=== PATIENT | female | born 1965 | race Caucasian/White ===

== ENCOUNTER 2020-04-22 13:57 | Inpatient (IN) | payer MEDICARE ==
[~2020-04-22] VITALS: Ht 162.6 cm; Wt 65.3 kg
--- NOTE | 2020-04-22 17:00 | NUR ---
DIRECTOR OF SALES SUPPORT NOTE- PT ARRIVED TO THIS UNIT VIA GURNEY ON 5150 DTS. PT WANTED TO SIT IN TRAFFIC AND END HER LIFE. ON FACE TO FACE ASSESSMENT PT IS SELECTIVELY APHASIC, POOR EYE CONTACT, BLUNTED AFFECT AND MINIMAL INTERACTION. PT IS 5'4" TALL AND 144 POUNDS. VS- BP- 114/75, HR- 81, RR-19, T- 98.7, SATURATION 96% RA, PT REFUSED PMHX QUESTIONS, SKIN CHECK, ACCU CHECK AND VIRTUALLY ALL QUERY. PTS BELONGINGS ITEMIZED BY MD LEONA ORDERS GIVEN AND COMPLIED WITH, FOOD ORDERED AND PT ATE 100%. PT WITHDRAWN ISOLATIVE DOES STATE SHE HAS PASSIVE +SI, HOMELESSNESS AND STRESS ARE FOCUS. PT APPEARS TO BE INTERNALLY PREOCCUPIED AND RESPONDING. REALITY ORIENTATION GIVEN, DISCUSSED SAFETY AND UNIT . PT SAID NOTHING. STARED AT FLOOR.
[2020-04-22] MEDS ORDERED: LAMO25TA5 PO (17:20)
[2020-04-22] MEDS ORDERED: OLAN5TAB3 PO (17:20)
[2020-04-22] MEDS ORDERED: RISP0.2515 PO (17:20)
[2020-04-22] MEDS ORDERED: TEMAZEPAM 7.5 MG CAPSULE PO PRN (17:30)
[2020-04-22] MEDS ORDERED: MAGNESIUM HYDROXIDE 30 ML UDC PO PRN (17:30)
[2020-04-22] MEDS ORDERED: clonazePAM 0.5 MG TABLET PO PRN (17:30)
[2020-04-22] MEDS ORDERED: MAG HYDROX/AL HYDROX/SIMETH 30 ML UDC PO PRN (17:30)
[2020-04-22] MEDS ORDERED: BLOOD SUGAR DIAGNOSTIC 1 EACH STRIP IN ONE (17:30)
[2020-04-22 18:09] VITALS: BP 114/75
[2020-04-23] MEDS: ACETAMINOPHEN 325 MG TABLET PO PRN ×2 (01:35→11:55)
[2020-04-23 08:00] VITALS: BP 110/73
--- NOTE | 2020-04-23 09:00 | NUR ---
RN NOTE- PT ALERT SHOWERED CLEAN CALM W GOOD PO INTAKE. PT W FLAT AFFECT DENIES SI HI AH VH AT PRESENT, POOR EYE CONTACT DISORGANIZED THOUGHTS RESPONDING AND INTERNALLY PREOCCUPIED.
--- NOTE | 2020-04-23 11:55 | NUR ---
RN NOTE- C/O HEADACHE. TYLENOL 650 MG GIVEN
--- NOTE | 2020-04-23 14:29 | NUR ---
RN NOTE- DYSPEPSIA COMPLAINT BY PT. MAALOX 30 ML GIVEN
[2020-04-23 16:00] VITALS: BP 129/91
[2020-04-23] MEDS: LamoTRIgine 25 MG TABLET PO SCH ×2 (16:11→20:34)
[2020-04-23] MEDS: OLANZAPINE 5 MG TABLET PO SCH (17:14)
[2020-04-23] MEDS: risperiDONE 1 MG TABLET PO SCH (17:14)
[2020-04-24 08:00] VITALS: BP 108/68
[2020-04-24] MEDS: OLANZAPINE 5 MG TABLET PO SCH ×2 (09:01→16:24)
[2020-04-24] MEDS: risperiDONE 1 MG TABLET PO SCH ×2 (09:02→16:24)
[2020-04-24] MEDS: ACETAMINOPHEN 325 MG TABLET PO PRN (10:23)
[2020-04-24] MEDS: LamoTRIgine 25 MG TABLET PO SCH ×2 (10:45→20:50)
--- NOTE | 2020-04-24 10:49 | NUR ---
SNI-MS:TYLENOL IS GIVEN DUE TO COMPLAIN OF HEADACHE 06/19
[2020-04-24 16:00] VITALS: BP 116/71
--- NOTE | 2020-04-24 18:11 | NUR ---
RN-CO: PT REFUSED LAB WORKS AGAIN, ENC 3X BUT STILL REFUSED.
[2020-04-25] MEDS: risperiDONE 1 MG TABLET PO SCH ×2 (09:32→16:19)
[2020-04-25] MEDS: OLANZAPINE 5 MG TABLET PO SCH ×2 (09:33→16:20)
[2020-04-25] MEDS: ACETAMINOPHEN 325 MG TABLET PO PRN ×2 (09:33→16:20)
[2020-04-25] MEDS: LamoTRIgine 25 MG TABLET PO SCH ×2 (09:34→21:58)
--- NOTE | 2020-04-25 09:34 | NUR ---
RN-CO: PT REQUESTED FOR TYLENOL FOR MILD PAIN.
--- NOTE | 2020-04-25 14:15 | NUR ---
Initial Discharge Plan: Pt is a homeless patient. Per pt, she is unaware of where to be discharged to. SW will work with the pt and the pts MD regarding appropriate discharge planning. SW will form a safe and proper plan.
[2020-04-25 16:00] VITALS: BP 108/69
[2020-04-25 16:29] LABS: BILIRUBIN,URINE NEGATIVE (NEGATIVE); COLOR,URINE YELLOW (YELLOW); LEUKOCYTE ESTERASE ,URINE NEGATIVE (NEGATIVE); NITRITE, URINE NEGATIVE (NEGATIVE); PROTEIN,URINE NEGATIVE (NEGATIVE); UGLUCOSE NEGATIVE (NEGATIVE); UROBILINOGEN,URINE 0.2 EU/dL (0.2)
--- NOTE | 2020-04-25 17:01 | NUR ---
STUDENT NURSE MENTAL HEALTH CONSULTANT MS: TYLENOL GIVEN 650MG FOR PAIN 06/19
[2020-04-25 17:28] LABS: BACTERIA,URINE None seen /HPF (None Seen); SQUAMOUS EPITHELIAL CELL,UR 0-2 /HPF (None Seen); WBC,URINE 0-2 /HPF (0-3)
--- NOTE | 2020-04-25 19:30 | NUR ---
GPS RN NOTE, RECEIVED PATIENT AWAKE AND IN BED, NO S/S OR COMPLAINTS OF PAIN AT THIS TIME. PATIENT IS DISPLAYING NO S/S OF APPARENT DISTRESS AT THIS TIME. PATIENT BREATHING IS UNLABORED WITH EQUAL RISE AND FALL OF THE CHEST. PATIENT IS ALERT AND ORIENTED X 2-3 ON ROOM AIR WITH A SPO2 94%. PATIENT IS COMPLIANT WITH MEDICATIONS, ANXIOUS AT TIMES, ISOLATIVE, NEEDS REDIRECTION, AND COOPERATIVE. PATIENT DENIES SUICIDAL AND HOMICIDAL IDEATIONS AT THIS TIME. PATIENT ASSISTED WITH TURNING AND REPOSITIONING Q2HR AND PRN FOR COMFORT AND CIRCULATION. PATIENT HAS NO NEEDS AT THIS TIME. PATIENT EDUCATED ON THE USE OF THE CALL POP. PATIENT BED SIDE RAILS UP X 2 FOR SAFETY. PATIENT BED IS LOCKED, LOW, WITH BED ALARM ON. WILL CONTINUE TO MONITOR THIS PATIENT Q15 MINUTES WITH THE HELP OF STAFF TO MAINTAIN SAFETY.
[2020-04-25 19:51] VITALS: BP 110/72
--- NOTE | 2020-04-25 21:58 | NUR ---
GPS RN NOTE, PATIENT REFUSED LAMICTAL 75MG PO Q12HR SCHEDULED. OFFERED THREE TIMES AND STILL PATIENT REFUSED STATING, " NO YOUR TO LATE I'M NOT TAKING ANYTHING TONIGHT ". EDUCATED PATIENT ON THE RISKS AND BENEFITS OF TAKING AND REFUSING LAMICTAL. WILL CONTINUE TO MONITOR THIS PATIENT WITH THE HELP OF STAFF.
[2020-04-26 07:28] LABS: BASOPHILS % (AUTO) 0.4 % (0.0-2.0); EOSINOPHILS % (AUTO) 3.4 % (0.0-6.0); HEMATOCRIT 34 % (33-45); HEMOGLOBIN 11.3 g/dL (11.5-14.8); LYMPHOCYTES # (AUTO) 2.3 /CMM (0.8-4.8); MEAN CORPUSCULAR HGB CONC 33 g/dl (31.0-36.0); MEAN CORPUSCULAR VOLUME 91 fL (82-100); MONOCYTES # (AUTO) 0.5 /CMM (0.1-1.30); MONOCYTES % (AUTO) 7.2 % (2.0-12.0); NEUTROPHILS # (AUTO) 3.9 /CMM (1.8-8.9); PLATELET COUNT (AUTO) 456 /CMM (150-450); RED BLOOD CELL COUNT(AUTO) 3.77 MIL/uL (4.0-5.2); WHITE BLOOD COUNT (AUTO) 6.9 K/uL (4.3-11.0)
[2020-04-26 07:54] LABS: CALCIUM, SERUM 9.3 mg/dL (8.5-10.1); CREATININE 0.8 mg/dL (0.6-1.3); PHOSPHORUS 4.1 mg/dL (2.5-4.9); POTASSIUM 4.3 mmol/L (3.5-5.1)
[2020-04-26 08:00] VITALS: BP 114/70
[2020-04-26] MEDS: OLANZAPINE 5 MG TABLET PO SCH ×2 (08:13→16:31)
[2020-04-26] MEDS: risperiDONE 1 MG TABLET PO SCH ×2 (08:13→16:31)
[2020-04-26 08:49] LABS: THYROID STIMULATING HORMONE 1.95 uIU/mL (0.358-3.74)
[2020-04-26] MEDS: LamoTRIgine 25 MG TABLET PO SCH ×2 (08:49→21:00)
[2020-04-26] MEDS: ACETAMINOPHEN 325 MG TABLET PO PRN (08:53)
--- NOTE | 2020-04-26 08:53 | NUR ---
RN NOTE-PT W C/O HEADACHE. TYLENOL 650 MG GIVEN
--- NOTE | 2020-04-26 09:00 | NUR ---
RN NOTE- PT ISOLATIVE WITHDRAWN CONFUSED NEEDS ATTENDED, PO INTAKE GOOD MED COMPLIANT DENIES ALL FOCUS ON DC
--- NOTE | 2020-04-26 09:57 | NUR ---
Probable Cause Hearing: Pts [id number] hold was upheld for danger to herself and grave disability.
[2020-04-26 16:00] VITALS: BP 112/74
--- NOTE | 2020-04-26 19:30 | NUR ---
GPS RN NOTE, RECEIVED PATIENT AWAKE AND IN BED, NO S/S OR COMPLAINTS OF PAIN AT THIS TIME. PATIENT IS DISPLAYING NO S/S OF APPARENT DISTRESS AT THIS TIME. PATIENT BREATHING IS UNLABORED WITH EQUAL RISE AND FALL OF THE CHEST. PATIENT IS ALERT AND ORIENTED X 2-3 ON ROOM AIR WITH A SPO2 96%. PATIENT IS COMPLIANT WITH MEDICATIONS, ANXIOUS AT TIMES, ISOLATIVE, NEEDS REDIRECTION, AND COOPERATIVE. PATIENT DENIES SUICIDAL AND HOMICIDAL IDEATIONS AT THIS TIME. PATIENT ASSISTED WITH TURNING AND REPOSITIONING Q2HR AND PRN FOR COMFORT AND CIRCULATION. PATIENT HAS NO NEEDS AT THIS TIME. PATIENT EDUCATED ON THE USE OF THE CALL POP. PATIENT BED SIDE RAILS UP X 2 FOR SAFETY. PATIENT BED IS LOCKED, LOW, WITH BED ALARM ON. WILL CONTINUE TO MONITOR THIS PATIENT Q15 MINUTES WITH THE HELP OF STAFF TO MAINTAIN SAFETY.
[2020-04-26 20:00] VITALS: BP 130/67
--- NOTE | 2020-04-26 21:12 | NUR ---
GPS RN NOTE, PATIENT REFUSED LAMICTAL 75MG PO Q12HR SCHEDULED. OFFERED THREE TIMES AND STILL PATIENT REFUSED STATING, " SKIP IT LEAVE ME ALONE THANK YOU ". EDUCATED PATIENT ON THE RISKS AND BENEFITS OF TAKING AND REFUSING LAMICTAL. WILL CONTINUE TO MONITOR THIS PATIENT WITH THE HELP OF STAFF.
[2020-04-27 08:00] VITALS: BP 109/62
[2020-04-27] MEDS: risperiDONE 1 MG TABLET PO SCH ×2 (08:28→16:23)
[2020-04-27] MEDS: OLANZAPINE 5 MG TABLET PO SCH ×2 (08:28→16:23)
[2020-04-27] MEDS: LamoTRIgine 25 MG TABLET PO SCH ×2 (09:23→21:00)
--- NOTE | 2020-04-27 15:23 | NUR ---
LUIS FELIPECO: MOM GIVEN FOR C/O CONSTIPATION.
[2020-04-27 16:00] VITALS: BP 114/68
--- NOTE | 2020-04-27 19:30 | NUR ---
GPS RN NOTE, RECEIVED PATIENT AWAKE AND IN BED, NO S/S OR COMPLAINTS OF PAIN AT THIS TIME. PATIENT IS DISPLAYING NO S/S OF APPARENT DISTRESS AT THIS TIME. PATIENT BREATHING IS UNLABORED WITH EQUAL RISE AND FALL OF THE CHEST. PATIENT IS ALERT AND ORIENTED X 2-3 ON ROOM AIR WITH A SPO2 97%. PATIENT IS COMPLIANT WITH MEDICATIONS, ANXIOUS AT TIMES, ISOLATIVE, NEEDS REDIRECTION, AND COOPERATIVE. PATIENT DENIES SUICIDAL AND HOMICIDAL IDEATIONS AT THIS TIME. PATIENT ASSISTED WITH TURNING AND REPOSITIONING Q2HR AND PRN FOR COMFORT AND CIRCULATION. PATIENT HAS NO NEEDS AT THIS TIME. PATIENT EDUCATED ON THE USE OF THE CALL POP. PATIENT BED SIDE RAILS UP X 2 FOR SAFETY. PATIENT BED IS LOCKED, LOW, WITH BED ALARM ON. WILL CONTINUE TO MONITOR THIS PATIENT Q15 MINUTES WITH THE HELP OF STAFF TO MAINTAIN SAFETY.
[2020-04-27 19:54] VITALS: BP 102/51
--- NOTE | 2020-04-27 21:15 | NUR ---
GPS RN NOTE, PATIENT REFUSED LAMICTAL 75MG PO Q12HR SCHEDULED. OFFERED THREE TIMES AND STILL PATIENT REFUSED STATING, " IT DOES NOT DO ANYTHING FOR ME ". EDUCATED PATIENT ON THE RISKS AND BENEFITS OF TAKING AND REFUSING LAMICTAL. WILL CONTINUE TO MONITOR THIS PATIENT WITH THE HELP OF STAFF.
[2020-04-28] MEDS: OLANZAPINE 5 MG TABLET PO SCH ×2 (09:47→17:54)
[2020-04-28] MEDS: risperiDONE 1 MG TABLET PO SCH ×2 (09:47→17:55)
[2020-04-28] MEDS: LamoTRIgine 100 MG TABLET PO SCH (09:49)
[2020-04-28] MEDS ORDERED: LamoTRIgine 25 MG TABLET PO SCH (10:00)
[2020-04-28 16:00] VITALS: BP 108/70
--- NOTE | 2020-04-28 21:30 | NUR ---
GPS RN note Pt refused VS assessment. Offered multiple times. Explained risks and benefits. Pt keep refusing. Will continue to monitor.
[2020-04-29] MEDS: OLANZAPINE 5 MG TABLET PO SCH ×2 (08:05→16:50)
[2020-04-29] MEDS: risperiDONE 1 MG TABLET PO SCH ×2 (08:05→16:50)
[2020-04-29] MEDS: LamoTRIgine 100 MG TABLET PO SCH (08:06)
[2020-04-29 09:33] VITALS: BP 111/70
--- NOTE | 2020-04-29 11:49 | NUR ---
SNF Referral: DELILAH faxed a referral to [facility] with attention to Admissions to the fax number: [phone].
--- NOTE | 2020-04-29 11:50 | NUR ---
SNF Contact: Chloe ([phone]), proposal coordinator from [facility], called the SW and stated that they are considering accepting the pt and that they are just waiting for the DON to approve. SW was informed that she would receive a call back.
--- NOTE | 2020-04-29 11:52 | NUR ---
Individual Intervention: SW met with the pt at bedside and attempted to speak to the pt about her discharge plan but the pt stated that she did not want to talk to the SW and that she "will figure out a plan." SW deemed this pt inappropriate for individual therapy at this time.
[2020-04-29 16:21] VITALS: BP 98/72
[2020-04-29 20:06] VITALS: BP 112/72
[2020-04-30 08:00] VITALS: BP 106/71
[2020-04-30] MEDS: OLANZAPINE 5 MG TABLET PO SCH ×2 (09:21→17:39)
[2020-04-30] MEDS: LamoTRIgine 100 MG TABLET PO SCH (09:22)
[2020-04-30] MEDS: risperiDONE 1 MG TABLET PO SCH ×2 (09:22→17:39)
[2020-04-30 16:00] VITALS: BP 113/68
[2020-04-30 20:40] VITALS: BP 111/73
[2020-04-30] MEDS: ACETAMINOPHEN 325 MG TABLET PO PRN (23:47)
--- NOTE | 2020-04-30 23:51 | NUR ---
GPS RN NOTES AT 2340 PT REQUESTED FOR SLEEP MED DUE TO INSOMNIA, RESTORIL 7.5MG 2TABS GIVEN PO ORDERED. PT ALSO REQUESTED TYLENOL FOR HEADACHE AT 2345,. TYLENOL 325MG 2TABS GIVEN PO ORDERED. WILL CONTINUE TO MONITOR AND ASSESS.
[2020-05-01 08:00] VITALS: BP 118/76
[2020-05-01] MEDS: LamoTRIgine 100 MG TABLET PO SCH (09:10)
[2020-05-01] MEDS: risperiDONE 1 MG TABLET PO SCH ×2 (09:10→16:09)
[2020-05-01] MEDS: OLANZAPINE 5 MG TABLET PO SCH ×2 (09:10→16:09)
[2020-05-01] MEDS: ACETAMINOPHEN 325 MG TABLET PO PRN (11:08)
--- NOTE | 2020-05-01 11:59 | NUR ---
Individual Intervention: SW attempted to conduct an individual intervention in lieu of group therapy due to the lack of involvement in this current patient population. Pt presented in her bedroom. Pt appears to be isolating and the SW asked the pt to speak more on that and the pt stated that she does not trust people and does not want to engage. She informed the SW that she did not want to engage with her either and asked the SW to leave. SW informed her that she is going to be discharged to a SNF the following day. SW deemed this pt inappropriate for group therapy at this time.
[2020-05-01 16:00] VITALS: BP 106/72
[2020-05-01 20:00] VITALS: BP 110/76
[2020-05-02] MEDS: LamoTRIgine 100 MG TABLET PO SCH (08:40)
[2020-05-02] MEDS: risperiDONE 1 MG TABLET PO SCH (08:40)
[2020-05-02] MEDS: OLANZAPINE 5 MG TABLET PO SCH (08:40)
[2020-05-02] MEDS: ACETAMINOPHEN 325 MG TABLET PO PRN (09:23)
--- NOTE | 2020-05-02 09:24 | NUR ---
RN-CO: TYLENOL GIVEN FOR TOOTHACHE.
[2020-05-02 10:11] VITALS: BP 101/64
--- NOTE | 2020-05-02 11:18 | NUR ---
RN-CO: PATIENT WAS MEDICALLY CLEARED BY DR ANGEL HENNING FOR DISCHARGE. NO CHANGES OVERNIGHT. PT REFUSED FLU VACCINE AND PNA VACCINE.
--- NOTE | 2020-05-02 11:39 | NUR ---
Discharge Note: Pt will be discharged to [facility] SNF located at [address] [place] [address] . Pt will be transported via [facility] (Trip #[id number]) at 1PM. There was no one to notify regarding pts discharge. Upon discharge, the pt appears to be in a dysphoric mood and presented with a congruent affect. Pt appears to be alert and oriented x4 (time, place, self and situation). Pt denies both suicidal and homicidal ideation as well as auditory and visual hallucinations. Pt appears to be ambulatory with a steady gait. Pt appears to be disheveled and malodorous. Due to the pt being homeless, pt was provided with resources including shelters, food aragon, showers, hot meals, mental health clinics, health clinics and substance abuse referrals. SW provided patient with the [phone] [facility] list. SW provided patient with a copy of the [facility] homeless directory which provides information on locations for hot meals, sack lunches, food pantries, and showers. SW provided an additional list of mental health clinics: [facility] [address] [place] [address] ([phone]); [facility] [address] [place] [address] ([phone]); a list of medical clinics; [facility] [address], [place]. [place], ; [facility] [address], [address], [place]. DELILAH Provided [facility] [address] [place] [address]: ([phone]). Patient was provided with a brief substance abuse intervention and referred to the following substance abuse programs: [facility] Substance Abuse Self-helpline ([phone]); [facility] [address] [place] [address] ([phone]); [facility] [address] [facility] [address] ([phone]); [facility] ([phone]); [facility] ([phone]); [facility] ([phone]); [facility] ([phone]). Pt will continue to be under the care of psychiatrist, Dr. Mcke[place], [place] [address] [place] [address]; . Pt will be under the care of tile power shear operator, Dr. Munoz, located at [address] [place] [address]; . The homeless waiver, choice of vendor form, and multidisciplinary exit care form were done, printed, signed, and given to the patient.
--- NOTE | 2020-05-02 11:56 | NUR ---
RN-CO: PATIENT WAS MEDICALLY CLEARED FOR DISCHARGE BY DR ANGEL GALEAS. REPORT WAS GIVEN TO "LENORE". GIORGIO IN [facility].
--- NOTE | 2020-05-02 12:05 | NUR ---
RN-CO: Patient is alert and oriented 3-4, able to make needs known. Denied suicidal and homicidal ideation. She deneid auditory and visual hallucination. No acute distress noted, and no changes overnight. Aware of her discharge and she verbalized understanding after I discussed her discharge papers. She also signed those paper works. She was medically cleared by Dr Jose Cruz Sheets. Dr Mckeon ordered to discontinue hold and discharge patient to SNF. Report was given to RN in SNF. Patient refused FLU and PNA vaccine when I offered it. She stated " I don't like the side effects."All belongings will be given back to her.
--- NOTE | 2020-05-02 15:44 | NUR ---
RN-CO:PATIENT WAS PICKED UP BY AMBULANCE.
== END 2020-05-02 15:57 | DRG 885 ==
LOC: GPS 16:51
PROVIDERS: ADMIT Psychiatry & Neurology Psychiatry
DX: F25.9 Schizoaffective disorder, unspecified (principal); R45.851 Suicidal ideations; F29 Unspecified psychosis not due to a substance or known physiological condition; F32.9 Major depressive disorder, single episode, unspecified; F41.9 Anxiety disorder, unspecified; Z73.6 Limitation of activities due to disability; R27.8 Other lack of coordination; Z91.81 History of falling; Z72.0 Tobacco use
CPT/HCPCS: 36415; 80048-TC; 80061-TC; 81001; 83735-TC; 84100-TC; 84443-TC; 85025-TC